=== PATIENT | female | born 1960 | race Hispanic/Latino ===

== ENCOUNTER 2017-06-04 08:45 | Outpatient (CLI) | payer OTHER | END 2017-06-04 08:46 | disposition home or self-care (01) | LOC: BICMAMMO 08:45 | PROVIDERS: ATTEND Family Medicine | DX: R92.2 Inconclusive mammogram (principal) | CPT/HCPCS: G0279 ==

== ENCOUNTER 2017-12-05 09:00 | Outpatient (CLI) | payer OTHER ==
--- NOTE | 2017-12-05 10:45 | MMO ---
BILATERAL MAMMOGRAMS: DATE: 12/05/17 HISTORY: Screening mammography. COMPARISON: 11/10/16. FINDINGS: Scattered fibroglandular densities and benign-appearing calcifications. Multiple partially obscured o corin and lobular isodense nodules of varying size throughout each breast are stable and consistent wit h a benign process. No new dominant mass or suspicious calcifications. The study was evaluated with the assistance of computer-aided detection. IMPRESSION: BIRADS 2: Benign Finding(s) Suggest routine follow-up. POS: [facility]
== END 2017-12-05 09:01 | disposition home or self-care (01) ==
LOC: SCSMAMMO 09:00
PROVIDERS: ATTEND Family Medicine
DX: Z12.31 Encounter for screening mammogram for malignant neoplasm of breast (principal)
CPT/HCPCS: 77067